=== PATIENT | female | born 1995 | race Caucasian/White ===

== ENCOUNTER → 2020-03-23 | Outpatient (CLI) | payer OTHER ==
[2020-03-24 03:20] LABS: RUBELLA AB IGG-REFLAB 1.63 index (Immune >0.99); RUBEOLA (MEASLES) IGG 39.9 AU/mL (Immune >16.4)
== END | disposition home or self-care (01) ==
LOC: PUC 12:34
DX: Z02.1 Encounter for pre-employment examination (principal)
CPT/HCPCS: 86706; 86735; 86762; 86765; 86787

== ENCOUNTER 2020-07-27 11:02 | Emergency (ER) | payer OTHER ==
[~2020-07-27] VITALS: Ht 175.3 cm; Wt 72.7 kg
[2020-07-27] MEDS ORDERED: BIRTH CONTROL PILLS PO (11:06)
[2020-07-27 13:05] VITALS: BP 110/68
== END 2020-07-27 13:13 | disposition home or self-care (01) ==
LOC: EMS 11:10
DX: J06.9 Acute upper respiratory infection, unspecified (principal); R03.0 Elevated blood-pressure reading, without diagnosis of hypertension; M79.10 Myalgia, unspecified site; Z20.828 Contact with and (suspected) exposure to other viral communicable diseases; Z88.0 Allergy status to penicillin
CPT/HCPCS: 71045; 87426; 99284; U0003

== ENCOUNTER 2020-11-02 16:24 | Emergency (ER) | payer OTHER ==
[~2020-11-02] VITALS: Ht 175.3 cm; Wt 68.2 kg
[~2020-11-02 16:24] MED LIST: BIRTH CONTROL PILLS PO
[2020-11-02 16:26] VITALS: BP 120/83
[2020-11-02] MEDS ORDERED: ACET325S20 PR (16:28)
[2020-11-02 17:17] LABS: COVID AG,FIA SOURCE NASOPHARYNGEAL
== END 2020-11-02 17:13 | disposition home or self-care (01) ==
LOC: EMS 16:24
DX: R11.2 Nausea with vomiting, unspecified (principal); R19.7 Diarrhea, unspecified; Z20.828 Contact with and (suspected) exposure to other viral communicable diseases
CPT/HCPCS: 87426; 99283; C9803; U0003

== ENCOUNTER 2021-10-09 11:57 | Emergency (ER) | payer OTHER ==
[~2021-10-09] VITALS: Ht 172.7 cm; Wt 165.0 kg
[~2021-10-09 11:57] MED LIST changes: +ACET325S20 PR
[2021-10-09 12:02] VITALS: BP 122/58
[2021-10-09 14:15] LABS: RAPID GROUP A STREP NEGATIVE (NEGATIVE)
[2021-10-09 14:56] LABS: INFLUENZA TYPE A NEGATIVE FOR TYPE A (NEGATIVE)
[2021-10-09 14:57] LABS: INFLUENZA TYPE B NEGATIVE FOR TYPE B (NEGATIVE)
[2021-10-09] MEDS: AZITHROMYCIN 500 MG TABLET PO ONE (15:10)
== END 2021-10-09 15:15 | disposition home or self-care (01) ==
LOC: EMS 11:57
DX: J18.0 Bronchopneumonia, unspecified organism (principal); Z20.822 Contact with and (suspected) exposure to COVID-19; Z88.0 Allergy status to penicillin
CPT/HCPCS: 71045; 87430; 87804; 99284; Q9967

== ENCOUNTER 2021-10-29 06:18 | Emergency (ER) | payer OTHER ==
[~2021-10-29] VITALS: Ht 177.8 cm; Wt 77.3 kg
[~2021-10-29 06:18] MED LIST changes: -ACET325S20 PR
[2021-10-29] MEDS ORDERED: SERT-158 PO (06:26)
[2021-10-29 08:00] VITALS: BP 122/69
[2021-10-29 08:40] LABS: BASOPHILS % (AUTO) 0.6 % (0.0-2.0); EOSINOPHILS % (AUTO) 1.4 % (1.0-6.0); HEMATOCRIT 43.1 % (36-46); HEMOGLOBIN 14.5 g/dL (12.0-16.0); LYMPHOCYTES # (AUTO) 0.7 K/uL (1.0-4.8); LYMPHOCYTES % (AUTO) 12.5 % (22.0-44.0); MEAN CORPUSCULAR HEMOGLOBIN 31.5 pg (26.0-34.0); MEAN CORPUSCULAR HGB CONC 33.6 G/dL (31.0-37.0); MEAN CORPUSCULAR VOLUME 94 fL (80-100); MONOCYTES # (AUTO) 0.8 K/uL (0.1-1.0); MONOCYTES % (AUTO) 13.6 % (2.0-9.0); NEUTROPHILS # (AUTO) 4.1 K/uL (1.8-7.7); NEUTROPHILS % (AUTO) 71.9 % (40.0-70.0); PLATELET COUNT (AUTO) 180 K/uL (150-450); RED BLOOD CELL COUNT(AUTO) 4.61 MIL/uL (4.00-5.20); RED CELL DISTRIBUTION WIDTH 13.4 % (11.5-14.5)
[2021-10-29 08:41] LABS: COVID AG,FIA SOURCE NASAL SWAB
[2021-10-29 08:50] LABS: ANION GAP 4 mmol/L (8-16); CALCIUM, TOTAL 9.2 mg/dL (8.8-10.5); CARBON DIOXIDE 29 mmol/L (22-29); CHLORIDE 103 mmol/L (98-107); CREATININE 0.79 mg/dL (0.60-1.30); GLOMERULAR FILTR. RATE CALC > 60 mL/min (>60); GLUCOSE,RANDOM 84 mg/dL (70-110); POTASSIUM 3.9 mmol/L (3.5-5.1); SODIUM SERUM 136 mmol/L (136-145); UREA NITROGEN, BLOOD 15 mg/dL (7-18)
[2021-10-29 08:55] LABS: ALANINE AMINOTRANSFERASE 25 U/L (12-78); ALBUMIN 3.8 g/dL (3.4-5.0); ALKALINE PHOSPHATASE 47 U/L (46-116); ASPARTATE AMINOTRANSFERASE 18 U/L (15-37); BILIRUBIN,TOTAL 0.2 mg/dL (0.1-1.0); TOTAL PROTEIN, SERUM 7.8 g/dL (6.4-8.2)
[2021-10-29 09:35] LABS: INFLUENZA TYPE A NEGATIVE FOR TYPE A (NEGATIVE); INFLUENZA TYPE B NEGATIVE FOR TYPE B (NEGATIVE)
== END 2021-10-29 11:04 | disposition home or self-care (01) ==
LOC: EMS 06:19
DX: U07.1 COVID-19 (principal); J40 Bronchitis, not specified as acute or chronic; F41.9 Anxiety disorder, unspecified; F32.9 Major depressive disorder, single episode, unspecified; Z79.899 Other long term (current) drug therapy; Z88.0 Allergy status to penicillin
CPT/HCPCS: 71045; 80053; 84703; 85025; 87804; 99284; 36415-L1; 36415-TC